=== PATIENT | female | born 1960 | race Caucasian/White ===

== ENCOUNTER 2016-03-12 04:34 | Emergency (ER) | payer BC ==
[~2016-03-12] VITALS: Ht 162.6 cm; Wt 55.5 kg
[~2016-03-12 04:34] MED LIST: CALC-619; IBUP100T46 PO; MULT-642 PO; POTA10CA2 PO; SUDAFED; VIT D; [UNRECOGNIZED DRUG - OTHER]
[2016-03-12 05:29] LABS: BASOPHILS % (AUTO) 0 % (0-2); EOSINOPHILS # (AUTO) 0.2 10^3uL; EOSINOPHILS % (AUTO) 3 % (0-4); LYMPHOCYTES # (AUTO) 2.7 X10^3; MEAN CORPUSCULAR HEMOGLOBIN 30.2 PG (26.0-34.0); MEAN CORPUSCULAR HGB CONC 34.5 g/dL (31.0-37.0); MEAN CORPUSCULAR VOLUME 88 FL (80-100); MEAN PLATELET VOLUME 9.7 FL (6.0-9.5); MONOCYTES # (AUTO) 0.6 X10^3; MONOCYTES % (AUTO) 10 % (3-11); NEUTROPHILS # (AUTO) 3.1 X10^3; NEUTROPHILS % (AUTO) 47 % (51-67); PLATELET COUNT 274 10^3uL (150-450); WHITE BLOOD COUNT 6.65 10^3uL (4.0-11.0)
[2016-03-12 05:49] LABS: BILIRUBIN,URINE Negative (Negative); CLARITY,URINE Clear; COLOR,URINE Yellow; GLUCOSE, URINE (UA) Negative (Negative); LEUKOCYTE ESTERASE ,URINE Negative (Negative); UROBILINOGEN,URINE 0.2 mg/dL (0.2-1.0)
--- NOTE | 2016-03-12 06:10 | NUR ---
CHECKED ON PT SHE DENIES ANY NEEDS AT THIS TIME. EXPLAINED WE WERE STILL WAITING ON LAB RESULTS.
[2016-03-12 06:21] LABS: ALKALINE PHOSPHATASE 69 U/L (38-126); ANION GAP 15.6 MEQ/L (3-15); BUN/CREATININE RATIO 20 (10-20); CREATINE KINASE 64 U/L (30-135); TOTAL PROTEIN 7.7 g/dL (6.4-8.5)
[2016-03-12 06:22] LABS: ALBUMIN 4.3 g/dL (3.4-5.0)
--- NOTE | 2016-03-12 06:27 | Diagnostic Imaging Report ---
INDICATION: Heart palpitations. COMPARISON: 10/21/2011 FINDINGS: Single frontal view of the chest is obtained. Heart size is normal. The pulmonary vessels appear unremarkable. There is no pneumothorax, mediastinal widening or pleural fluid demonstrated. The lungs are clear. There are degenerative changes with a dextroscoliosis in the spine. IMPRESSION: No radiographic evidence of an acute cardiopulmonary process. No significant interval change when compared to the prior study. Dictated by: Dictated on workstation # [id number]
--- NOTE | 2016-03-12 06:40 | NUR ---
CHECKED ON PT AND DENIES ANY PROBLEMS AT THIS TIME. UPDATED HER ON WAIT
[2016-03-12 06:47] LABS: RBC,URINE 0-2 /HPF; URINE CENTRIFUGED VOLUME 12 mL
[2016-03-12 06:48] LABS: AMPHETAMINE SCREEN, URINE Negative (Negative); CANNABINOID SCREEN, URINE Negative (Negative); METHAMPHETAMINE SCREEN URINE S NEGATIVE (NEGATIVE); OPIATE SCREEN URINE Negative (Negative)
[2016-03-12 06:49] VITALS: BP 130/80
[2016-03-12 06:49] LABS: PROPOXYPHENE STAT NEGATIVE (NEGATIVE)
== END 2016-03-12 06:56 | disposition home or self-care (01) ==
LOC: ED 04:35
DX: R00.2 Palpitations (principal)
CPT/HCPCS: 36415; 71010; 80053; 80307; 81003; 81015; 82550; 82553; 83735; 84443; 84484; 85025; 85379; 85610; 86140; 93005; 93010; 99284

== ENCOUNTER → 2016-07-16 | Outpatient (CLI) | payer BC ==
[~2016-07-16] MED LIST changes: +AZIT250T81 PO
[2016-07-16 15:48] VITALS: BP 123/77
--- NOTE | 2016-07-16 15:48 | Urgent Care T Sheet Gen (E) ---
Intake General Temperature (Fahrenheit): 99.6 Pulse: 82 Blood Pressure Systolic: 123 Blood Pressure Diastolic: 77 Respirations: 18 SPO2: 99 Description of Symptoms patient presents with nasal congestion x 2 weeks. Thought she was getting better however symptoms worsened last night and her L ear became painful. No fever. no cough. Been taking Mucinex and been using Flonase without improvement. Has also been irrigating the nose. History of Present Illness Allergies: Coded Allergies: No Known Allergies (Verified Allergy, Unknown, 03/12/16) Home Meds Reported Medications Multivitamin (Once Daily)1 Each Tablet1 Each PO BID 10/22/13 [Fruit Plus] No Conflict Check 10/21/11 [Vit D] 1 EACH TABLET No Conflict Check 10/21/11 Calcium Carbonate (Calcium)300 Mg Tab.chew 10/21/11 Respiratory Constitutional Symptoms: No syptoms reportedNo Fever, No Malaise EENTM: Ear pain Nose CongestionNo Throat pain Respiratory: No symptoms reported Cardiovascular: No symptoms reported Gastrointestinal/Abdominal: No symptoms reported All Other Systems Reviewed Remaining Systems: All other systems reviewed with negative findings Past [id number]-[id number] Hx Patient's Social History Alcohol Use: Denies Use Smoking Status: Never smoker Recent foreign travel: No Surgeries/Hospitalizations Hospitalization/Surgery Hx: D&C Respiratory Respiratory History: None Cardiovascular Cardiovascular History: Palpitations, Other, see comment Comment: History of SVT 2years ago Neuro/Muscular Neuro/Muscular History: Back Problems, Visual impairment Comment: SCOLIOSIS Reproductive System Sexually Transmitted Diseases: No Genitouinary Genitourinary History: None Gastrointestinal GI/Endocrine History: None Diabetes Diabetes: No HEENT Impaired Vision: Glasses Hearing Impaired: None Integumentary Integumentary History: None Cancer History of Cancer?: No Psychosocial Behavior Disorders: None Physical Exam Physical Exam General Appearance: WD/WN No apparent distress Eyes, Ears, Nose, Throat Ex: Pharynx normal TM abnormal (L) (red, bulging) Other (some nasal congestion) Neck Exam: SuppleNo Lymphadenopathy Respiratory Exam: Lungs clear Normal breath sounds Cardiovascular Exam: Regular rate, rhythm Departure Urgent Care Impression Impression: Primary Impression: Otitis media Qualified Code: H66.002 - Acute suppurative otitis media without spontaneous rupture of ear drum, left ear Departure Disposition: 01 HOME OR SELF-CARE Condition: Stable Referrals: Cristiano Brown MD (PCP) Additional Instructions: Patient states the penicillin based meds tend to give her diarrhea. I have prescribed Zpak for treatment Ibuprofen for pain. Return as needed Patient understands DC instructions. All questions were answered. Scripts Azithromycin (Zithromax Z-Eduin)6 Tab/Pkt [id number] Mg PO SEE INSTRUCTIONS #6 TAB Ref 0 Day One: Take 2 tablets by mouth Days Two-Five: Take 1 tablet by mouth Prov:NATHAN CLAUDIO 07/16/16 End of report . NATHAN CLAUDIO July 16, 2016 15:48
== END ==
LOC: MHUC 15:14
PROVIDERS: ATTEND Physician Assistant
DX: H66.002 Acute suppurative otitis media without spontaneous rupture of ear drum, left ear (principal)
CPT/HCPCS: 99213